=== PATIENT | female | born 1975 | race Caucasian/White ===

== ENCOUNTER 2017-06-05 16:25 | Emergency (ER) | payer OTHER ==
[~2017-06-05] VITALS: Ht 167.6 cm; Wt 52.3 kg
[2017-06-05 16:29] VITALS: BP 137/82; PULSE 67; RESP 18; O2SAT 97
--- NOTE | 2017-06-05 17:49 | ED.REPORT ---
HPI-Trauma Minor / Fall Date of Service Jun 05, 2017 ED Provider: Dickson Washington PA-C Huong is an otherwise healthy 43-year-old female signed emergent department with a chief complaint of possibly infected abrasions. Patient reports falling while hiking several days ago, abrading her right knee, wrist, shoulder and left knee. Complains of increasing pain, heat, redness and purulent discharge from right knee, right wrist, right shoulder. Denies reduced range of motion, fever, shaking chills. Denies comorbidities such as diabetes, HIV or immunosuppressive drugs. Nursing Notes Stated Complaint: ABRASIONS ON RIGHT WRIST POSSIBLE INFECTION Chief Complaint: Multiple Trauma/Fall Nursing Notes Reviewed: Yes Allergies: Coded Allergies: No Known Allergies (Verified , 04/13/12) Uncoded Allergies: No Known Allergies (Allergy, Mild, 03/07/04) Scheduled Cephalexin (Cephalexin) 500 Mg Tablet 500 MG PO QID Sulfamethoxazole/Trimeth 800-160 mg (Bactrim DS) 1 Each Tablet 1 TABLET PO BID Scheduled PRN Hydrocodone-Acetaminophen 5-325 mg (Hydrocodone-Acetaminophen 5-325 mg) 1 Each Tablet 1-2 TABLET PO Q4H PRN PRN For Pain General Time Seen by MD: 17:19 Chief Complaint Other (infected abrasions.) Past Medical History Past Medical History Denies Review of Systems Review of Systems Note: Negative unless stated otherwise in history of present illness Physical Exam General: Well appearing, well developed, well nourished, no acute distress. Right knee: 2 cm x 2 cm abrasion with moderate purulent discharge, surrounding erythema. Good range of motion. Right wrist: 2 cm x 2 cm abrasion with moderate purulent discharge, surrounding erythema on the palmar aspect of distal forearm. Right shoulder: 2 cm x 3 cm abrasion with slight purulent discharge on anterior shoulder. Head: Atraumatic, normocephalic. Eyes: No scleral icterus or injection. No discharge. Vision grossly intact. ENT: Voice clear, hearing grossly intact. Respiratory: No respiratory distress, no increased work of breathing. Speaks in complete sentences. Skin: Warm and dry. Neurological: Grossly nonfocal. Psychological: alert and oriented. Speech appropriate, linear and logical. Behavior appropriate. Initial Vital Signs Vital Signs (First) Date Time Temp Pulse Resp B/P Pulse Ox O2 Delivery O2 Flow Rate FiO2 06/05/17 16:29 37.2 67 18 137/82 97 Room Air Normal Re-Eval/Medical Decision Med Decision/Clinical Course Is healthy 41-year-old female presents emergency Department with abrasions sustained in a ground level fall several days ago which was concerning and become infected. There is small amount of purulent discharge and surrounding erythema. No indication of systemic illness. The patient is resistant to antibiotics. Provided a prescription for Bactrim and Keflex, advised to initiate them if redness, swelling and discharge worsens or does not recede in 2 days. Advise primary care follow-up. Advise [id number] analgesia, provide a small amount of Corder to supplement with precautions. Advised regarding primary care follow-up, provided emergency return precautions. Patient verbalized understanding of, and consent to, the plan. Discharge & Departure Impression: Primary Impression: Cellulitis Site of cellulitis: unspecified site Qualified Code: L03.90 - Cellulitis, unspecified Additional Impression: Abrasion Disposition: Home Discharge Condition All VS Reviewed: Yes Condition: Stable Patient Instructions: Cellulitis (ED) Additional Instructions: Evaluation in the emergency department include interview, and physical examination which suggests that the abrasions on her right, wrist and shoulder are mildly infected at this time. I'll write a prescription for Keflex 500 mg to be taken 4 times a day for the next 7 days. I will also write a prescription for Bactrim DS to be taken twice a day for the next 7 days. Please be sure to take every dose. Because you're resistant to taking antibiotics, I will provide with paper scripts. Observe these wounds for the next day or 2. If you note them getting worse, start taking the antibiotics. If they improve, the antibiotics will probably not be necessary. The pain is best treated with 400 mg of ibuprofen (Advil, Motrin) every 6 hours , or 1000 mg of acetaminophen (Tylenol) every 6 hours. These drugs can be taken at the same time for more severe pain. Follow-up with your primary care provider in about 1 week to assess your progress. Return to the emergency department for any new or worsening symptoms including increasing redness, swelling, pain or fever. Referrals: Jessie Churchill MD (PCP) EDSupervising Provider for APC: Farrukh Hale DO copies to: Jessie Churchill MD, Seth PA-C Jun 05, 2017:49
[2017-06-05] MEDS ORDERED: SULF1TAB7 PO (17:50)
[2017-06-05] MEDS ORDERED: CEPH500T PO (17:50)
[2017-06-05] MEDS ORDERED: HYDR-4003 PO (18:01)
[2017-06-05 18:18] VITALS: BP 137/82; PULSE 67; RESP 18; O2SAT 97
== END 2017-06-05 18:16 | disposition home or self-care (01) ==
LOC: SED 16:25
DX: L03.113 Cellulitis of right upper limb (principal); L03.115 Cellulitis of right lower limb; L03.116 Cellulitis of left lower limb; S80.211A Abrasion, right knee, initial encounter; S40.211A Abrasion of right shoulder, initial encounter; S60.811A Abrasion of right wrist, initial encounter; S80.212A Abrasion, left knee, initial encounter; W18.39XA Other fall on same level, initial encounter; Y93.02 Activity, running; Y92.828 Other wilderness area as the place of occurrence of the external cause; Y99.8 Other external cause status